=== PATIENT | female | born 1975 | race Caucasian/White ===

== ENCOUNTER 2017-10-16 15:04 | Inpatient (IN) ==
[2017-10-16] MEDS ORDERED: Ondansetron 4 MG/2 ML VIAL IVP ONE (15:20)
[2017-10-16] MEDS ORDERED: 0.9 % Sodium Chloride 1,000 ML IVC ONE ×2 (15:20→16:56)
[2017-10-16] MEDS ORDERED: *HR* FentaNYL (PF) 100 MCG/2 ML VIAL IVP ONE (15:21)
--- NOTE | 2017-10-16 15:26 | Emergency Department Note ---
Disposition Clinical Impression: Pyelonephritis Urinary tract infection Qualifiers: Urinary tract infection type: site unspecified Hematuria presence: with hematuria Qualified Code(s): N39.0 - Urinary tract infection, site not specified Sepsis Qualifiers: Sepsis type: sepsis due to unspecified organism Qualified Code(s): A41.9 - Sepsis, unspecified organism Disposition: Admitted As Inpatient Condition: Undetermined Referrals: NONE,PCP [Primary Care Provider] - Forms: ED Satisfaction Letter Time of Disposition: 16:19 Female Urogenital HPI - General Chief complaint: ED Urogenital-Female Stated complaint: fever x 5 days, blood in urine Time Seen by Provider: 10/16/17 15:14 Source: patient Mode of arrival: ambulatory Limitations: no limitations Nursing Notes Reviewed: Yes Vital Signs Reviewed: Yes - History of Present Illness HPI Narrative: 42-year-old female with history of kidney stone as well as UTI arrives [facility] emergency department complaining of fevers and right- sided flank pain for the past 5 days. Fevers and is 504 degrees Fahrenheit. The patient states this feels worse than her normal UTI she states this feels very similar to her kidney stone she has never had fever kidney stone before. The patient denies any other complaints at this time other than some associated nausea. The patient is Pt Subjective Complaint: dysuria, "UTI" Onset (ago): day(s) (5) Radiation: R flank Severity: moderate, severe Severity scale (1-10): 8 Quality: cramping Duration: constant, gradually worsening Improves with: none Worsens with: none Urinary Symptoms: dysuria, urgency, flank pain Sexual activity: no : no Associated symptoms: Reports: nausea/vomiting, fever/chills - Related Data Allergies Allergy/AdvReac Type Severity Reaction Status Date / Time nalbuphine [From Nubain] Allergy Itching Verified 10/16/17 15:09 All systems ED: reviewed and negative except as stated. Constitutional: Reports: fever, chills. Denies: weakness ENT ED: Denies: congestion Cardiovascular: Denies: chest pain Respiratory: Denies: dyspnea Gastrointestinal: Reports: abdominal pain, nausea. Denies: vomiting, diarrhea, constipation, hematemesis, melena, hematochezia Genitourinary: Reports: urgency, dysuria, hematuria. Denies: frequency, discharge Musculoskeletal: Denies: back pain, neck pain, arthralgia, myalgia Integumentary: Denies: rash Neurological: Denies: headache Past Medical History - Past Medical History Attestation: Yes The following information was validated with the patient. Source: patient Medical history: Reports: kidney stones, other Surgical history: Reports: non-contributory Psychiatric history: Reports: no psych history [employer] history: Reports: endometriosis - Social History Smoking Status: Current every day smoker Smokeless Tobacco Status: No Alcohol use: Reports: none Drug use: Reports: none Physical Exam - General Limitations: no limitations General appearance: alert, in no apparent distress - Head Head exam: atraumatic, normocephalic, normal inspection - Eye Eye exam: Present: normal appearance, PERRL, EOMI - ENT ENT exam: normal exam, normal oropharynx, mucous membranes moist - Neck Neck exam: Present: normal inspection, full ROM, trachea midline - Chest Chest inspection: Present: normal inspection, symmetric chest wall rise - Respiratory Respiratory exam: Present: normal lung sounds bilaterally - Cardiovascular Cardiovascular exam: Present: normal rhythm, tachycardia, normal heart sounds - Abdominal Exam Abdominal exam: Present: soft, Non-Tender. Absent: tenderness, distention, guarding, rebound, rigidity - Extremities Exam Extremities exam: Present: normal inspection, full ROM. Absent: tenderness - Neurological Exam Neurological exam: Present: alert, oriented X3 - Skin Skin exam: Present: warm, dry, intact, normal color Course Vital Signs Temperature 100 F H 10/16/17 15:10 Pulse Rate 136 10/16/17 15:10 Respiratory Rate 20 10/16/17 15:10 Blood Pressure 102/71 10/16/17 15:10 O2 Sat by Pulse Oximetry 98 10/16/17 15:10 Temperature 100 F H 10/16/17 15:10 Pulse Rate 136 10/16/17 15:10 Respiratory Rate 20 10/16/17 15:10 Blood Pressure 102/71 10/16/17 15:10 O2 Sat by Pulse Oximetry 98 10/16/17 15:10 Oxygen Delivery Oxygen Delivery Room Air Urogenital-Female - MDM Narrative Medical decision making narrative: Workup in the emergency department demonstrates findings consistent with urosepsis as well as pyelonephritis. The patient has a lot of straining her on her right kidney. The patient does have bilateral kidney stones without any obstructive stone. The patient was begun on Rocephin. The patient did receive IV fluids. The patient will be admitted to the hospitalist, accepted by Dr. Mcelroy. - Lab Data Lab results reviewed: Yes I reviewed the patient's lab results. Result diagrams: 10/16/17 15:30 10/16/17 15:30 Lab Results 10/16/17 10/16/17 10/16/17 Range/Units 15:20 15:30 15:30 WBC 10.3 (4.3-11.1) K/mcL RBC 4.37 (3.82-4.97) M/mcL Hgb 13.7 (11.5-15.4) g/dL Hct 40.8 (35.3-44.9) % MCV 93.4 (83.0-100.0) fL MCH 31.4 (28.0-33.3) pg MCHC 33.6 (31.6-35.5) g/dL RDW 12.9 (11.5-14.5) % Plt Count 156 (140-400) K/mcL MPV 11.1 (9.4-12.4) fL Immature Gran % 0.4 (0-4) % Seg Neutrophils % 76.9 % Lymphocytes % 10.4 % Monocytes % 10.8 % Eosinophils % 1.2 % Basophils % 0.3 % Neutrophils # 7.9 (1.6-8.9) K/mcL Lymphocytes # 1.1 (0.6-4.6) K/mcL Monocytes # 1.1 (0.0-1.3) K/mcL Eosinophils # 0.1 (0.0-0.6) K/mcL Basophils # 0.0 (0.0-0.2) K/mcL Sodium 137 (136-145) mEq/L Potassium 4.0 (3.5-4.5) mEq/L Chloride 101 (98-109) mEq/L Carbon Dioxide 26 (19-29) mEq/L BUN 10 (7-20) mg/dL Creatinine 0.69 (0.57-1.11) mg/dL Est GFR ( Amer) > 60 (> 60) Est GFR (Non-Af Amer) > 60 (> 60) BUN/Creatinine Ratio 14 (6-26) Glucose 107 H (70-99) mg/dL Calculated Osmolality 284 (280-300) Lactic Acid (0.5-2.2) mmol/L Calcium 9.8 (8.6-10.8) mg/dL Urine Color Yellow (Yellow) Urine Clarity Cloudy A (Clear) Urine pH 6.5 (5.0-8.0) pH Units Ur Specific [place] 1.013 (1.010-1.025) Urine Protein 100 H (Neg-Trace) mg/dL Urine Glucose (UA) Normal (Normal) mg/dL Urine Ketones Negative (Negative) mg/dL Urine Blood Moderate H (Negative) Urine Nitrite Positive A (Negative) Urine Bilirubin Negative (Negative) Urine Urobilinogen Normal (Normal) mg/dL Ur Leukocyte Esterase Large H (Negative) Urine Microscopic RBC 15-30 H (0-3) per hpf Urine Microscopic WBC TNTC H (0-3) per hpf Ur Squamous Epith Cells Many H (None-Few) per lpf Urine Bacteria Many H (None-Few) per hpf Hyaline Casts None Seen (None-Few) per lpf Ur Culture Indicated? NO (NO) 10/16/17 Range/Units 16:03 WBC (4.3-11.1) K/mcL RBC (3.82-4.97) M/mcL Hgb (11.5-15.4) g/dL Hct (35.3-44.9) % MCV (83.0-100.0) fL MCH (28.0-33.3) pg MCHC (31.6-35.5) g/dL RDW (11.5-14.5) % Plt Count (140-400) K/mcL MPV (9.4-12.4) fL Immature Gran % (0-4) % Seg Neutrophils % % Lymphocytes % % Monocytes % % Eosinophils % % Basophils % % Neutrophils # (1.6-8.9) K/mcL Lymphocytes # (0.6-4.6) K/mcL Monocytes # (0.0-1.3) K/mcL Eosinophils # (0.0-0.6) K/mcL Basophils # (0.0-0.2) K/mcL Sodium (136-145) mEq/L Potassium (3.5-4.5) mEq/L Chloride (98-109) mEq/L Carbon Dioxide (19-29) mEq/L BUN (7-20) mg/dL Creatinine (0.57-1.11) mg/dL Est GFR ( Amer) (> 60) Est GFR (Non-Af Amer) (> 60) BUN/Creatinine Ratio (6-26) Glucose (70-99) mg/dL Calculated Osmolality (280-300) Lactic Acid 0.9 (0.5-2.2) mmol/L Calcium (8.6-10.8) mg/dL Urine Color (Yellow) Urine Clarity (Clear) Urine pH (5.0-8.0) pH Units Ur Specific [place] (1.010-1.025) Urine Protein (Neg-Trace) mg/dL Urine Glucose (UA) (Normal) mg/dL Urine Ketones (Negative) mg/dL Urine Blood (Negative) Urine Nitrite (Negative) Urine Bilirubin (Negative) Urine Urobilinogen (Normal) mg/dL Ur Leukocyte Esterase (Negative) Urine Microscopic RBC (0-3) per hpf Urine Microscopic WBC (0-3) per hpf Ur Squamous Epith Cells (None-Few) per lpf Urine Bacteria (None-Few) per hpf Hyaline Casts (None-Few) per lpf Ur Culture Indicated? (NO) - Radiology Data Radiology results reviewed: Yes I reviewed the patient's radiology results. Critical Care Time Critical Care Time: Yes Total Critical Care Time: 30 Attestation: The high probability of a clinically significant, sudden or life threatening deterioration of the [] system(s) required my full and direct attention, intervention and personal management. The aggregate critical care time was [30] minutes. This time is in addition to time spent performing reported procedures but includes the following: [x] Data Review and interpretation [x] Patient assessment and monitoring of vital signs [x] Documentation [x] Medication orders and management Attestation Statement - Attestation Attestation: I examined this patient and my medical decision-making was reviewed with the Resident Physician, Dr. Sepulveda. I agree with the documented findings, disposition and treatment plan as described except to the extent set forth below. Patient is a 42-year-old white female who presents to the emergency today with complaints of lightheadedness, fevers chills, urinary symptoms, and right flank pain radiating around to the right lower quadrant which is all gradually worsened over the past 5 days. Patient has a history of prior kidney stones as well as prior hospitalization for septic shock related to urinary tract infection. Patient's been having nausea and vomiting over the past few days and today has not been able to tolerate anything by mouth. Patient arrives tachycardic, febrile, and hypotensive. Sepsis protocol has been initiated on arrival. I agree patient's physical exam findings as documented. Patient had IV saline while established IV fluids were ordered and initiated in the ED, labs and urinalysis were obtained, patient was administered pain medicine and antiemetics for comfort and then sent for CT scan. Initial concern was pyelonephritis versus retained stone with sepsis. CT does show some stranding around the right kidney and mild dilatation of the right ureter but no obstructing stone. At this time we will initiate antibiotic therapy as urinalysis confirms UTI. We will reassess patient's hemodynamic status following initial fluid bolus and closely monitor vital signs. Patient will be admitted for acute pyelonephritis and sepsis.
[2017-10-16 15:29] LABS: Bilirubin,Urine Negative (Negative); Blood,Urine Moderate (Negative); Clarity,Urine Cloudy (Clear); Color,Urine Yellow (Yellow); Glucose,Urine (UA) Normal (Normal); Ketones,Urine Negative (Negative); Leukocyte Esterase,Urine Large (Negative); Nitrite,Urine Positive (Negative); PH,Urine 6.5 pH Units (5.0-8.0); Protein,Urine 100 mg/dL (Neg-Trace); Specific Gravity,Urine 1.013 (1.010-1.025); Urobilinogen,Urine Normal (Normal)
[2017-10-16 15:30] LABS: Bacteria,Urine Many per hpf (None-Few); Hyaline Casts,Urine None Seen per lpf (None-Few); RBC,Urine 15-30 per hpf (0-3); Squamous Epithelial Cell,Urine Many per lpf (None-Few); WBC,Urine TNTC per hpf (0-3)
[2017-10-16 15:40] LABS: Basophils % 0.3 %; Eosinophils # 0.1 K/mcL (0.0-0.6); Eosinophils % 1.2 %; Hematocrit 40.8 % (35.3-44.9); Hemoglobin 13.7 g/dL (11.5-15.4); Immature Granulocytes % 0.4 % (0-4); Lymphocytes # 1.1 K/mcL (0.6-4.6); Lymphocytes % 10.4 %; Mean Corpuscular HGB Conc 33.6 g/dL (31.6-35.5); Mean Corpuscular Hemoglobin 31.4 pg (28.0-33.3); Mean Corpuscular Volume 93.4 fL (83.0-100.0); Mean Platelet Volume 11.1 fL (9.4-12.4); Monocytes # 1.1 K/mcL (0.0-1.3); Monocytes % 10.8 %; Neutrophils # 7.9 K/mcL (1.6-8.9); Platelet Count 156 K/mcL (140-400); Red Blood Count 4.37 M/mcL (3.82-4.97); Red Cell Distribution Width 12.9 % (11.5-14.5); Segmented Neutrophils % 76.9 %
[2017-10-16 15:52] LABS: BUN/Creatinine Ratio 14 (6-26); Blood Urea Nitrogen 10 mg/dL (7-20); Calcium 9.8 mg/dL (8.6-10.8); Carbon Dioxide 26 mEq/L (19-29); Chloride 101 mEq/L (98-109); Glucose 107 mg/dL (70-99); Osmolality,Calculated 284 (280-300); Sodium 137 mEq/L (136-145); eGFR For African Americans > 60 (> 60); eGFR For Non-African Americans > 60 (> 60)
[2017-10-16] MEDS ORDERED: cefTRIAXone 1,000 MG in Water for inj. (sterile) 10 ML IVP ONE (16:02)
[2017-10-16] MEDS ORDERED: Ondansetron 4 MG/2 ML VIAL IVP PRN (16:34)
[2017-10-16] MEDS ORDERED: Naloxone 0.4 MG/ML INJ IVP PRN (16:34)
--- NOTE | 2017-10-16 16:58 | Internal Med History&Physical ---
<Suhail Hurst - Last Filed: 10/16/17 16:55> Date of Encounter: 10/16/17 Time of Encounter: 16:55 Assessment and Plan (1) Sepsis Current visit: Yes Status: Acute Sepsis secondary to urinary tract infection pyelonephritis. Patient presents with fever, reporting her max of 104 for the last 5 days, Tachycardia, tachypnea and hypertension. Urinalysis reveals cloudy urine with moderate blood , nitrates and large leukocyte esterase. CT abdomen pelvis shows bilateral nephrolithiasis without obstruction. History of prior UTIs. No organ damage noted on lab work. Due to sepsis secondary to pyelonephritis will make her an inpatient admission. Blood pressure improving with IV fluid bolus Temperature has improved without therapy, now 100 F Remains tachycardic pulse now 108 HR no longer in the 130s ATB-ceftriaxone 1 g daily, urine sent for culture, narrow as appropriate Oxycodone 10 every 6 hours when necessary for pain Tylenol for fever Continue rehydration, 0.9% normal saline at 1 25 mL per hour Continuous telemetry, continuous O2 monitoring CBC, BMP the morning Qualifiers: Sepsis type: sepsis due to unspecified organism Qualified Code(s): A41.9 - Sepsis, unspecified organism (2) Pyelonephritis Current visit: Yes Status: Acute Continues to have right flank pain. CT of abdomen and pelvis shows bilateral nephrolithiasis without obstruction. Prior histories of UTI however is never had pyelonephritis. See plan above (3) Urinary tract infection Current visit: Yes Status: Acute History of UTIs X2. This makes her third UTI. See plan above Qualifiers: Urinary tract infection type: site unspecified Hematuria presence: with hematuria Qualified Code(s): N39.0 - Urinary tract infection, site not specified; R31.9 - Hematuria, unspecified; R31.9 - Hematuria, unspecified (4) DVT prophylaxis Current visit: Yes Status: Acute Heparin 5000 units subcutaneous twice a day Internal Medicine - H&P: HPI Chief complaint: Right flank pain, fever, dysuria 5 days Admitted From: Home Plans for Post Hospital Care: Home History of present illness: Ms. Buckner is a 42 year old female with history of kidney stones and UTI 2 presented to [facility] today complaining of high-grade fevers, right flank pain and dysuria 5 days. Patient reports that she has a MAXIMUM TEMPERATURE of 104 and carried high-grade fever last 5 days. She reports that this is not feeling to typical UTI. She is concerned because of the flank pain, which is how she had kidney stones patient the symptoms she was experiencing. She denies any regular , fatigue, abdominal pain. Urinalysis revealed moderate blood, nitrates and large leukocyte esterase as well as cloudy urine. CT abdomen and pelvis shows bilateral nephrolithiasis are not obstructing. Due to presentation with fever, tachycardia, tachypnea, hypotension and she is likely septic and will need antibiotics, IV fluids and further monitoring. Past Med Surg Social Fam HX - Past Medical History Medical history: kidney stones, other Psychiatric history: no psych history - Past Surgical History Surgical History: non-contributory - Social History Smoking Status: Current every day smoker Smokeless Tobacco Status: No Alcohol use: none Drug use: none - Additional Family History Additional family history: Noncontributory Internal Medicine - H&P: Meds Ergocalciferol (VITAMIN D2) [Vitamin D2] 50,000 unit PO FR 10/16/17 [History] Oxycodone HCl/Acetaminophen [Percocet 10-325 mg Tablet] 1 tab PO Q6H PRN [History] 3 Allergy/AdvReac Type Severity Reaction Status Date / Time nalbuphine [From Nubain] Allergy Itching Verified 10/16/17 15:09 All Systems PM: A 10-system review of systems was performed and is negative for pertinent findings except as documented above in the HPI. - Constitutional Constitutional: fatigue, fever(s), no chills, no night sweats - EENT Eyes: no change in vision, no discharge, no pain, no photophobia Ears: no ear discharge, no ear pain, no tinnitus Nose, mouth and throat: no dysphagia, no nasal discharge, no neck pain, no sore throat - Cardiovascular Cardiovascular ROS IM: no chest pain, no diaphoresis, no dyspnea, no lightheadedness, no palpitations, no syncope - Respiratory Respiratory: no cough, no dyspnea, no wheezing, no excessive phlegm production - Gastrointestinal Gastrointestinal: no abdominal pain, no diarrhea, no hematemesis, no hematochezia, no melena, no nausea, no vomiting - Genitourinary Genitourinary: dysuria, flank pain (Right), hematuria, urinary frequency, no change in urinary stream - Musculoskeletal Musculoskeletal ROS IM: back pain, no numbness, no tingling - Integumentary Integumentary IM: no rash, no unusual bruising - Neurological Neurological ROS: no confusion, no convulsions, no focal weakness, no numbness, no tingling, no tremor(s) - Hematologic/Lymphatic Hematologic/Lymphatic: no easy bruising - Constitutional Vitals: Temp Pulse Resp BP Pulse Ox 100 F H 111 16 112/74 97 10/16/17 15:10 10/16/17 16:18 10/16/17 16:18 10/16/17 16:18 10/16/17 16:18 General appearance: Present: cooperative, mild distress, A&O X 3, answers questions appropriately - Head Head exam: Present: atraumatic, normocephalic - Eye Eye exam: Present: PERRL, conjuntiva pink, sclera anicteric Pupils: Present: PERRL - Neck Neck exam general surgery: Present: supple, trachea midline. Absent: lymphadenopathy - Respiratory Respiratory exam: Present: CTAB. Absent: accessory muscle use, rales, rhonchi, wheezes - Cardiovascular Cardiovascular exam: Present: RRR, +S1, +S2. Absent: diastolic murmur, gallop, rubs, systolic murmur - GI/Abdominal GI/Abdominal exam: Present: normal bowel sounds, soft, tenderness (Suprapubic), no peritoneal signs. Absent: distended - Extremities Exam Extremities exam: Present: warm, radial pulses palpable and symmetrical. Absent : calf tenderness, cyanotic, pedal edema - Back Exam Back exam: Present: CVA tenderness (R) (Mild), tenderness - Neurological Exam Neurological exam: Present: CN II-XII intact, oriented X3, no focal deficits. Absent: pronater drift, facial droop, speech deficit - Skin Skin exam: Present: dry, intact Internal Med - H&P Results - Labs CBC & Chem 7: 10/16/17 15:30 10/16/17 15:30 - Diagnostic Studies CT scan - abdomen Status: image reviewed by me Additional comments: Bilateral nephrolithiasis, mild prominence of right renal pelvis no obstructing stone identified <Adalberto Mcelroy - Last Filed: 10/16/17 17:31> Date of Encounter: 10/16/17 Internal Medicine - H&P: HPI History of present illness: Ms. Buckner is a 42 year old female All Systems PM: A 10-system review of systems was performed and is negative for pertinent findings except as documented above in the HPI. - Constitutional Vitals: Temp Pulse Resp BP Pulse Ox 100 F H 107 15 114/65 97 10/16/17 15:10 10/16/17 17:24 10/16/17 17:24 10/16/17 17:24 10/16/17 17:24 Internal Med - H&P Results - Labs CBC & Chem 7: 10/16/17 15:30 10/16/17 15:30 - Attending Attestation I examined this patient and my medical decision-making was reviewed with the Resident Physician. I agree with the documented findings, disposition and treatment plan as described except to the extent set forth below.
[2017-10-16] MEDS: Acetaminophen 325 MG TABLET PO PRN (18:34)
[2017-10-16] MEDS: *HR* Heparin 5,000 UNIT/ML VIAL SQ SCH (18:37)
[2017-10-16] MEDS: *HR* OxyCODONE/APAP 10/325 TABLET PO PRN (21:08)
[2017-10-16] MEDS: Nicotine 14 MG PATCH.TD24 TD SCH (22:02)
[2017-10-16] MEDS: *HR* Promethazine 25 MG/ML VIAL IVP PRN (22:02)
[2017-10-16] MEDS: 0.9 % Sodium Chloride 1,000 ML IVC SCH (22:55)
[2017-10-17] MEDS: Acetaminophen 325 MG TABLET PO PRN (02:35)
[2017-10-17] MEDS: *HR* OxyCODONE/APAP 10/325 TABLET PO PRN ×3 (04:50→19:50)
[2017-10-17 04:55] LABS: Basophils % 0.3 %; Eosinophils # 0.2 K/mcL (0.0-0.6); Eosinophils % 2.5 %; Hematocrit 31.1 % (35.3-44.9); Immature Granulocytes % 0.1 % (0-4); Lymphocytes # 1.1 K/mcL (0.6-4.6); Lymphocytes % 14.6 %; Mean Corpuscular HGB Conc 33.1 g/dL (31.6-35.5); Mean Corpuscular Hemoglobin 31.3 pg (28.0-33.3); Mean Corpuscular Volume 94.5 fL (83.0-100.0); Mean Platelet Volume 10.7 fL (9.4-12.4); Monocytes # 0.9 K/mcL (0.0-1.3); Monocytes % 12.1 %; Neutrophils # 5.2 K/mcL (1.6-8.9); Platelet Count 149 K/mcL (140-400); Red Blood Count 3.29 M/mcL (3.82-4.97); Red Cell Distribution Width 13.1 % (11.5-14.5); Segmented Neutrophils % 70.4 %
[2017-10-17 05:10] LABS: BUN/Creatinine Ratio 12 (6-26); Blood Urea Nitrogen 7 mg/dL (7-20); Carbon Dioxide 26 mEq/L (19-29); Chloride 107 mEq/L (98-109); Glucose 147 mg/dL (70-99); Osmolality,Calculated 287 (280-300); Sodium 138 mEq/L (136-145); eGFR For African Americans > 60 (> 60); eGFR For Non-African Americans > 60 (> 60)
[2017-10-17 05:11] LABS: Calcium 8.2 mg/dL (8.6-10.8)
[2017-10-17 05:13] LABS: Hemoglobin 10.3 g/dL (11.5-15.4)
[2017-10-17] MEDS: *HR* Heparin 5,000 UNIT/ML VIAL SQ SCH ×2 (05:21→16:32)
[2017-10-17] MEDS: 0.9 % Sodium Chloride 1,000 ML IVC SCH (07:05)
[2017-10-17] MEDS ORDERED: Ibuprofen 400 MG TABLET PO ONE (09:22)
--- NOTE | 2017-10-17 09:25 | Internal Med Progress Note ---
Date of Encounter: 10/17/17 Time of Encounter: 09:00 - Assessment and plan (1) Sepsis Current Visit: Yes Status: Acute Assessment and plan: Tmax 101 Improving Sepsis is secondary to R pyelonephritis Patient is still tachycardic even though her fever is improving, tachycardia is sinus Increase Ceftriaxone to 2g daily Follow blood and urine culture Blood pressure has improved Continue to monitor High risk condition with risk of progression to septic shock Qualifiers: Sepsis type: sepsis due to unspecified organism Qualified Code(s): A41.9 - Sepsis, unspecified organism (2) Urinary tract infection Current Visit: Yes Status: Acute Assessment and plan: Complicated, as above Follow urine culture Qualifiers: Urinary tract infection type: site unspecified Hematuria presence: with hematuria Qualified Code(s): N39.0 - Urinary tract infection, site not specified; R31.9 - Hematuria, unspecified; R31.9 - Hematuria, unspecified (3) Pyelonephritis Current Visit: Yes Status: Acute Assessment and plan: As above, in sepsis (4) DVT prophylaxis Current Visit: Yes Status: Acute Assessment and plan: Refused heparin Ambulate - Subjective Interval history: Seen and evaluated at bedside 42 F Admitted and being managed for Sepsis secondary to Pyelonephritis, Complicated UTI with non-obstructive nephro-lithiasis She complained of a migraine headache this morning Nausea and vomiting has imptoved - Constitutional Vitals: Temp Pulse Resp BP Pulse Ox 99.5 F 105 12 102/69 97 10/17/17 08:54 10/17/17 08:54 10/17/17 08:54 10/17/17 08:54 10/17/17 08:54 General appearance: Present: cooperative, A&O X 3, pleasant, no acute distress, answers questions appropriately - Head Head exam: Present: atraumatic, normocephalic - Eye Eye exam: Present: PERRL, conjuntiva pink, sclera anicteric Pupils: Present: PERRL - Neck Neck exam general surgery: Present: supple, trachea midline. Absent: lymphadenopathy - Respiratory Respiratory exam: Present: CTAB. Absent: accessory muscle use, rales, rhonchi, wheezes - Cardiovascular Cardiovascular exam: Present: RRR, +S1, +S2. Absent: diastolic murmur, gallop, rubs, systolic murmur - GI/Abdominal GI/Abdominal exam: Present: normal bowel sounds, soft, no peritoneal signs. Absent: distended, tenderness - Extremities Exam Extremities exam: Present: warm, radial pulses palpable and symmetrical. Absent : calf tenderness, cyanotic, pedal edema - Back Exam Back exam: Present: CVA tenderness (R) - Neurological Exam Neurological exam: Present: alert, CN II-XII intact, oriented X3, no focal deficits. Absent: pronater drift, facial droop, speech deficit - Skin Skin exam: Present: dry, intact Internal Medicine: Result - Labs CBC & Chem 7: 10/17/17 04:22 10/17/17 04:22 Labs: Short CBC 10/17/17 Range/Units 04:22 WBC 7.3 (4.3-11.1) K/mcL Hgb 10.3 L D (11.5-15.4) g/dL Hct 31.1 L (35.3-44.9) % Plt Count 149 (140-400) K/mcL Neutrophils # 5.2 (1.6-8.9) K/mcL BMP 10/17/17 04:22 Sodium 138 Potassium 3.0 L D Chloride 107 Carbon Dioxide 26 BUN 7 Creatinine 0.60 Glucose 147 H Calcium 8.2 L D Consult Discharge Plan - Plan Referrals: NONE,PCP [Primary Care Provider] -
[2017-10-17] MEDS: Nicotine 14 MG PATCH.TD24 TD SCH (09:44)
[2017-10-17] MEDS: cefTRIAXone 2,000 MG in Water for inj. (sterile) 20 ML IVPB SCH (09:44)
[2017-10-17] MEDS: *HR* Promethazine 25 MG/ML VIAL IVP PRN ×2 (10:50→20:10)
[2017-10-17] MEDS ORDERED: Aspirin 325 MG TABLET PO ONE (18:16)
[2017-10-17] MEDS ORDERED: Aspirin 325 MG TABLET PO STA (18:19)
[2017-10-17] MEDS ORDERED: 0.9 % Sodium Chloride 1,000 ML IVC SCH (22:00)
[2017-10-18] MEDS: *HR* OxyCODONE/APAP 10/325 TABLET PO PRN ×3 (02:10→15:23)
[2017-10-18 05:47] LABS: Basophils % 0.3 %; Eosinophils # 0.2 K/mcL (0.0-0.6); Eosinophils % 2.9 %; Hematocrit 32.7 % (35.3-44.9); Hemoglobin 10.9 g/dL (11.5-15.4); Immature Granulocytes % 0.3 % (0-4); Lymphocytes # 1.5 K/mcL (0.6-4.6); Lymphocytes % 20.7 %; Mean Corpuscular HGB Conc 33.3 g/dL (31.6-35.5); Mean Corpuscular Volume 95.9 fL (83.0-100.0); Mean Platelet Volume 10.9 fL (9.4-12.4); Monocytes # 0.7 K/mcL (0.0-1.3); Monocytes % 10.1 %; Neutrophils # 4.6 K/mcL (1.6-8.9); Platelet Count 157 K/mcL (140-400); Red Blood Count 3.41 M/mcL (3.82-4.97); Red Cell Distribution Width 13.1 % (11.5-14.5); Segmented Neutrophils % 65.7 %
[2017-10-18 06:02] LABS: BUN/Creatinine Ratio 14 (6-26); Blood Urea Nitrogen 8 mg/dL (7-20); Calcium 8.5 mg/dL (8.6-10.8); Carbon Dioxide 26 mEq/L (19-29); Chloride 107 mEq/L (98-109); Glucose 103 mg/dL (70-99); Osmolality,Calculated 289 (280-300); Sodium 140 mEq/L (136-145); eGFR For African Americans > 60 (> 60); eGFR For Non-African Americans > 60 (> 60)
[2017-10-18] MEDS: *HR* Heparin 5,000 UNIT/ML VIAL SQ SCH ×2 (06:03→17:50)
[2017-10-18] MEDS: Azithromycin 500 MG in D5% in Water 250 ML IVPB SCH (09:09)
[2017-10-18] MEDS: Nicotine 14 MG PATCH.TD24 TD SCH (09:10)
[2017-10-18] MEDS ORDERED: CefTRIAXone 2,000 MG VIAL ONE (10:48)
[2017-10-18] MEDS: cefTRIAXone 2,000 MG in Water for inj. (sterile) 20 ML IVPB SCH (10:52)
[2017-10-18] MEDS ORDERED: Ibuprofen 400 MG TABLET PO PRN (12:01)
--- NOTE | 2017-10-18 12:08 | Internal Med Progress Note ---
Date of Encounter: 10/18/17 Time of Encounter: 11:45 - Assessment and plan (1) Sepsis Current Visit: Yes Status: Acute Assessment and plan: Tmax 102 Improving Sepsis is secondary to R pyelonephritis, suspect CAP Patient is still tachycardic even though her fever is improving, tachycardia is sinus Continue Ceftriaxone to 2g daily Prelim blood culture negative Urine with E.coli, sensitivity is pending, await final cultures Blood pressure has improved Continue to monitor High risk condition with risk of progression to septic shock Qualifiers: Sepsis type: sepsis due to unspecified organism Qualified Code(s): A41.9 - Sepsis, unspecified organism (2) Urinary tract infection Current Visit: Yes Status: Acute Assessment and plan: Complicated, presence of non-obstructing stones, as above Qualifiers: Urinary tract infection type: site unspecified Hematuria presence: with hematuria Qualified Code(s): N39.0 - Urinary tract infection, site not specified; R31.9 - Hematuria, unspecified; R31.9 - Hematuria, unspecified (3) Pyelonephritis Current Visit: Yes Status: Acute Assessment and plan: As above, in sepsis (4) DVT prophylaxis Current Visit: Yes Status: Acute Assessment and plan: Refused heparin Ambulate (5) Pneumonia Current Visit: Yes Status: Suspected Assessment and plan: Suspected per x-ray. Patient has no cough, no chest symptoms. Add azithromycin IV to her current medications. Qualifiers: Pneumonia type: due to unspecified organism Laterality: unspecified laterality Lung location: unspecified part of lung Qualified Code(s): J18.9 - Pneumonia, unspecified organism - Subjective Interval history: Seen and evaluated at bedside 42 F Admitted and being managed for Sepsis secondary to Pyelonephritis, Complicated UTI with non-obstructive nephro-lithiasis Nausea and vomiting has improved She is still having fevers, most recent episode started on 2.3. Night team requested chest x-ray which was possible pneumonia. We will add azithromycin to her current medications. Urinary culture is growing Escherichia coli, sensitivities pending. - Constitutional Vitals: Temp Pulse Resp BP Pulse Ox 98.0 F 102 16 99/66 95 10/18/17 10:54 10/18/17 10:54 10/18/17 10:54 10/18/17 10:54 10/18/17 10:54 General appearance: Present: cooperative, A&O X 3, pleasant, no acute distress, answers questions appropriately - Head Head exam: Present: atraumatic, normocephalic - Eye Eye exam: Present: PERRL, conjuntiva pink, sclera anicteric Pupils: Present: PERRL - Neck Neck exam general surgery: Present: supple, trachea midline. Absent: lymphadenopathy - Respiratory Respiratory exam: Present: CTAB. Absent: accessory muscle use, rales, rhonchi, wheezes - Cardiovascular Cardiovascular exam: Present: RRR, +S1, +S2. Absent: diastolic murmur, gallop, rubs, systolic murmur - GI/Abdominal GI/Abdominal exam: Present: normal bowel sounds, soft, no peritoneal signs. Absent: distended, tenderness - Extremities Exam Extremities exam: Present: warm, radial pulses palpable and symmetrical. Absent : calf tenderness, cyanotic, pedal edema - Back Exam Back exam: Present: CVA tenderness (R) - Neurological Exam Neurological exam: Present: alert, CN II-XII intact, oriented X3, no focal deficits. Absent: pronater drift, facial droop, speech deficit - Skin Skin exam: Present: dry, intact Internal Medicine: Result - Labs CBC & Chem 7: 10/18/17 04:09 10/18/17 04:09 Labs: Short CBC 10/18/17 Range/Units 04:09 WBC 7.0 (4.3-11.1) K/mcL Hgb 10.9 L (11.5-15.4) g/dL Hct 32.7 L (35.3-44.9) % Plt Count 157 (140-400) K/mcL Neutrophils # 4.6 (1.6-8.9) K/mcL BMP 10/18/17 04:09 Sodium 140 Potassium 4.0 D Chloride 107 Carbon Dioxide 26 BUN 8 Creatinine 0.59 Glucose 103 H Calcium 8.5 L Cardiac Enzymes 10/17/17 Range/Units 18:52 Troponin I 0.01 (0-0.03) ng/mL - Impressions Impressions Chest X-Ray 10/18/17 04:11 IMPRESSION: Bibasilar parenchymal opacities are noted which could represent atelectasis versus developing infiltrates. These are new since the prior CT dated October 16, 2017. D/ / Malorie Fernandes MD / Malorie Fernandes MD Interpreting Provider: Malorie Fernandes MD Consult Discharge Plan - Plan Referrals: NONE,PCP [Primary Care Provider] -
[2017-10-19] MEDS: *HR* OxyCODONE/APAP 10/325 TABLET PO PRN (02:45)
[2017-10-19] MEDS: *HR* Heparin 5,000 UNIT/ML VIAL SQ SCH (05:40)
[2017-10-19 06:40] LABS: BUN/Creatinine Ratio 10 (6-26); Blood Urea Nitrogen 6 mg/dL (7-20); Calcium 8.7 mg/dL (8.6-10.8); Carbon Dioxide 26 mEq/L (19-29); Chloride 105 mEq/L (98-109); Glucose 125 mg/dL (70-99); Osmolality,Calculated 287 (280-300); Potassium 3.5 mEq/L (3.5-4.5); Sodium 139 mEq/L (136-145); eGFR For African Americans > 60 (> 60); eGFR For Non-African Americans > 60 (> 60)
[2017-10-19 06:44] LABS: Basophils % 0.6 %; Eosinophils # 0.4 K/mcL (0.0-0.6); Eosinophils % 6.1 %; Immature Granulocytes % 0.3 % (0-4); Lymphocytes # 1.8 K/mcL (0.6-4.6); Mean Corpuscular HGB Conc 33.3 g/dL (31.6-35.5); Mean Corpuscular Hemoglobin 31.4 pg (28.0-33.3); Mean Corpuscular Volume 94.3 fL (83.0-100.0); Mean Platelet Volume 10.4 fL (9.4-12.4); Monocytes # 0.7 K/mcL (0.0-1.3); Monocytes % 10.8 %; Neutrophils # 3.5 K/mcL (1.6-8.9); Platelet Count 177 K/mcL (140-400); Segmented Neutrophils % 54.2 %
[2017-10-19] MEDS ORDERED: CefTRIAXone 2,000 MG VIAL ONE (07:54)
[2017-10-19] MEDS: cefTRIAXone 2,000 MG in Water for inj. (sterile) 20 ML IVPB SCH (08:02)
[2017-10-19] MEDS: Azithromycin 500 MG in D5% in Water 250 ML IVPB SCH (08:09)
[2017-10-19] MEDS: Nicotine 14 MG PATCH.TD24 TD SCH (08:16)
--- NOTE | 2017-10-19 09:56 | Discharge Summary ---
Date of Encounter: 10/19/17 Time of Encounter: 10:00 - Discharge Diagnosis (1) Urinary tract infection Priority: Primary Status: Acute Qualifiers: Urinary tract infection type: site unspecified Hematuria presence: with hematuria Qualified Code(s): N39.0 - Urinary tract infection, site not specified; R31.9 - Hematuria, unspecified; R31.9 - Hematuria, unspecified (2) Pyelonephritis Priority: Primary Status: Acute (3) Sepsis Priority: Primary Status: Acute Qualifiers: Sepsis type: sepsis due to unspecified organism Qualified Code(s): A41.9 - Sepsis, unspecified organism (4) Tobacco abuse Priority: Primary Status: Acute - Discharge Medications Prescriptions: levoFLOXacin [Levaquin] 500 mg PO DAILY #10 tablet Varenicline Tartrate [Chantix Starting ] 1 each PO AD #1 dosepack Home Medications: Ergocalciferol (VITAMIN D2) [Vitamin D2] 50,000 unit PO FR 10/16/17 [History] Oxycodone HCl/Acetaminophen [Percocet 10-325 mg Tablet] 1 tab PO Q6H PRN [History] Varenicline Tartrate [Chantix Starting ] 1 each PO AD #1 dosepack 10/19 [Rx] levoFLOXacin [Levaquin] 500 mg PO DAILY #10 tablet 10/19/17 [Rx] Allergies/Adverse Reactions: 3 Allergy/AdvReac Type Severity Reaction Status Date / Time nalbuphine [From Nubain] Allergy Itching Verified 10/16/17 15:09 Procedures/tests Complete & Pending: Procedures Performed prior 72 hours Category Date Time Status EKG [ECG 12 lead ECG] [ECG] Stat Y 10/17/17 18:17 Completed Date of admission: 10/16/17 16:45 Primary care physician: PCP NONE - Patient Status Disposition: Home, Self-Care Condition: Fair Overall status at discharge: patient is back to baseline - Discharge Instructions Follow Up With: Lindsey Fan [Advanced Practice Nurse] - 10/28/17 1:30 pm - Diet and Activity Activity: resume usual activities as tolerated Diet: regular diet Hospital course: Ms. Buckner is a 42 year old female with history of kidney stones and UTI 2 presented to [facility] today complaining of high-grade fevers, right flank pain and dysuria 5 days. Patient reported a temp of 104. Urinalysis revealed moderate blood, nitrates and large leukocyte esterase as well as cloudy urine. CT abdomen and pelvis shows bilateral nephrolithiasis but not obstructing. Was put on IV Rocephin. She remained tachycardic and febrile for a day or so. This resolved with IV antibiotic IV fluids. Eventually we discharge her on oral Levaquin as she grew Escherichia coli from urine cultures. She also requested Chantix at discharge which I have prescribed. She was stable for discharge on 1219. - Time Spent with Patient Total time spent providing and/or coordinating discharge services: - Constitutional Vitals: Temp Pulse Resp BP Pulse Ox 97.8 F 79 14 111/70 95 10/19/17 07:17 10/19/17 07:17 10/19/17 07:17 10/19/17 07:17 10/19/17 07:17 General appearance: Present: cooperative, A&O X 3, pleasant, no acute distress, answers questions appropriately Exam: GEN: NAD CVS: RRR. S1, S2, No m/r/g RESP: CTAB ABD: Soft, NT, ND, +BS EXT: No edema. 2+ DP, No rashes NEURO: Nonfocal
[2017-10-19 10:21] VITALS: BP 115/76
[2017-10-19] MEDS ORDERED: FLUARIX QUAD 2017-18 36MOS UP/PF 0.5 ML SYRINGE IM ONE (10:27)
--- NOTE | 2017-10-19 10:43 | Electrocardiograph Report ---
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
== END 2017-10-19 10:56 | disposition home or self-care (01) | DRG 720 ==
LOC: EMEROO 15:04 → 3ANU 15:04 → SUATTDRO 16:45 → 3ANU 18:10
PROVIDERS: ADMIT Internal Medicine Cardiovascular Disease; ATTEND Internal Medicine